=== PATIENT | male | born 1975 | race Hispanic/Latino ===

== ENCOUNTER 2025-05-08 07:04 | Observation (INO) | payer OTHER ==
[2025-05-04 14:53] LABS: BASOPHILS % 0.7 % (0.0-1.0); EOSINOPHILS % 2.4 % (0.0-6.0); LYMPHOCYTES % 28.2 % (18.0-39.1); MONOCYTES % 6.9 % (4.4-11.3); NEUTROPHILS % 61.7 % (38.7-80.0); RED CELL DISTRIBUTION WIDTH 12.9 % (11.7-14.4)
[2025-05-04 15:29] LABS: EST GLOMERULAR FILTRATION RATE 105.0 ML/MIN (>=60)
[~2025-05-08] VITALS: Ht 165.1 cm; Wt 71.3 kg
[~2025-05-08 07:04] MED LIST: ASPIRIN EC81 MG PO; FINASTERIDE5 MG PO; FLOMAX0.4 MG PO; LIPITOR10 MG PO; LISINOPRIL2.5 MG PO; SOTALOL80 MG PO; VITAMIN B-121000 MCG PO; [UNRECOGNIZED DRUG - OTHER] PO
[2025-05-08] MEDS ORDERED: LIDOCAINE HCL 2% LOCAL INJ 5 ML SDV VIAL INJ ONE ×2 (07:21→14:32)
[2025-05-08] MEDS ORDERED: ONDANSETRON HCL INJ 2MG/ML 2ML 2 MG/ML VIAL ONE ×3 (07:21→15:27)
[2025-05-08] MEDS ORDERED: FENTANYL CITRATE/PF 100MCG/2 ML INJ ONE ×4 (07:22→16:59)
[2025-05-08] MEDS ORDERED: MIDAZOLAM HCL 2 MG/2 ML VIAL ONE (07:22)
[2025-05-08] MEDS ORDERED: PROPOFOL IV EMULSION 10 MG/ML 20 ML VIAL ONE ×3 (07:22→14:32)
[2025-05-08] MEDS ORDERED: ONDANSETRON HCL INJ 2MG/ML 2ML 2 MG/ML VIAL IV PRN (10:30)
[2025-05-08 12:22] VITALS: BP 133/84; PULSE 68; RESP 17; TEMP 98.6; O2SAT 100
[2025-05-08] MEDS: LACTATED RINGER'S 1,000 ML ONE (12:30)
[2025-05-08] MEDS: SODIUM CHLORIDE 0.9% 1000ML 1,000 ML IV SCH (12:46)
[2025-05-08 14:15] VITALS: BP 133/84; PULSE 68; RESP 17; TEMP 98.6; O2SAT 100
[2025-05-08] MEDS ORDERED: SUCCINYLCHOLINE CHLORIDE 20 MG/ML 10ML VIAL ONE (14:32)
[2025-05-08] MEDS ORDERED: ACETAMINOPHEN 1000 MG/100 ML 100 ML IV ONE (14:32)
[2025-05-08] MEDS ORDERED: SEVOFLURANE INHAL SOLN 250 ML PEN BTL ONE (14:32)
[2025-05-08] MEDS ORDERED: ROCURONIUM BROMIDE 1 ML IV ONE (14:32)
[2025-05-08] MEDS: HYDROMORPHONE 1MG/1ML INJ IV PRN (14:53)
[2025-05-08] MEDS ORDERED: DEXAMETHASONE SOD PHOS INJ 4 MG/ML SDV ONE (15:27)
[2025-05-08] MEDS ORDERED: FAMOTIDINE 20 MG/2 ML VIAL IV ONE (15:27)
[2025-05-08 16:00] VITALS: BP 124/74; PULSE 65; RESP 18; TEMP 98.8; O2SAT 99
[2025-05-08] MEDS ORDERED: SUGAMMADEX SODIUM 200 MG/2 ML VIAL IV ONE (16:52)
[2025-05-08] MEDS: SOTALOL HCL 80 MG TAB PO SCH (17:25)
[2025-05-08] MEDS: HYDROCODONE/APAP 7.5MG-325MG 1 EA TAB PO PRN (17:33)
[2025-05-08 20:00] VITALS: BP 114/68; PULSE 71; RESP 20; TEMP 99.5; O2SAT 100
[2025-05-08] MEDS: ATORVASTATIN 10 MG TAB PO SCH (20:29)
[2025-05-08] MEDS: KETOROLAC TROMETHAMINE 30 MG/ML VIAL IV PRN (20:30)
[2025-05-08 21:00] VITALS: BP 114/68; PULSE 71; RESP 20; TEMP 99.5; O2SAT 100
[2025-05-09] VITALS: BP 101/62; PULSE 66; RESP 20; TEMP 98.7; O2SAT 98
[2025-05-09 04:00] VITALS: BP 94/53; PULSE 64; RESP 20; TEMP 98.8; O2SAT 98
[2025-05-09 08:28] VITALS: BP 105/68; PULSE 62; RESP 19; TEMP 98.8; O2SAT 100
[2025-05-09 09:00] VITALS: BP 105/68; PULSE 62; RESP 19; TEMP 98.8; O2SAT 100
[2025-05-09 09:01] VITALS: BP 105/68
[2025-05-09] MEDS: LISINOPRIL 2.5 MG TAB PO SCH (09:01)
[2025-05-09] MEDS: FINASTERIDE 5 MG TAB PO SCH (09:01)
[2025-05-09] MEDS: TAMSULOSIN HCL 0.4 MG CAP PO SCH (09:01)
== END 2025-05-09 10:45 | disposition home or self-care (01) ==
LOC: OR 07:04 → PACU V 10:25 → MED/SURG2 12:26
PROVIDERS: ADMIT Surgery; ATTEND Surgery
DX: K64.8 Other hemorrhoids (principal); I10 Essential (primary) hypertension; I25.10 Atherosclerotic heart disease of native coronary artery without angina pectoris; I48.91 Unspecified atrial fibrillation; N40.0 Benign prostatic hyperplasia without lower urinary tract symptoms; Z79.82 Long term (current) use of aspirin; Z01.810 Encounter for preprocedural cardiovascular examination; Z01.812 Encounter for preprocedural laboratory examination
CPT/HCPCS: 36415; 46260; 80048; 85025; 88304; 93005; G0378 ×2; J0131; J1100; J1171; J1308; J1885 ×2; J2003; J2250; J2405; J2704; J3010; J7030 ×2; J7121; J0330